=== PATIENT | male | born 1955 | race Caucasian/White ===

== ENCOUNTER 2017-03-02 15:18 | Outpatient (CLI) | payer OTHER | END 2017-03-02 15:19 | disposition home or self-care (01) | LOC: SC 15:18 | PROVIDERS: ATTEND Nurse Practitioner Family | DX: G47.33 Obstructive sleep apnea (adult) (pediatric) (principal) | CPT/HCPCS: 99212; 99214 ==

== ENCOUNTER 2018-11-16 | Outpatient (CLI) | payer MEDICARE, OTHER | END 2018-11-16 13:35 | disposition home or self-care (01) | DX: G47.33 Obstructive sleep apnea (adult) (pediatric) (principal) | CPT/HCPCS: 99214; G0463; 99212 ==

== ENCOUNTER 2022-10-14 14:50 | Outpatient (CLI) | payer MEDICARE, OTHER ==
--- NOTE | 2022-10-14 16:04 | SLEEP CARE CONSULTATION ---
Information from patient questionnaire entered by Rachel Leung. I have reviewed and concur with the information entered by Rachel Leung. This document represents the service I personally performed and the decisions made by me, Onelia Armijo ARNP. History of Present Illness Service Date and Time: 10/14/2022 1450 Reason for Visit: New patient, sleep apnea on CPAP therapy, Re-establish care Chief Complaint: reports: Other (UPDATE BIPAP MACHINE) Date of Onset: VIA Usual bedtime: 930-10PM Time it takes to fall asleep: 30MIN Snores at night: No Observed to quit breathing while asleep: No Sleeps alone due to snoring: No Number of times waking at night: 1 Reasons for waking at night: reports: Bathroom Toss, Turn, or Twitch while sleeping: No Recalls having dreams: Yes Usually gets out of bed at: WEEKDAYS 630-7AM WEEKENDS 9-10AM Feels refreshed in the morning: Yes Morning headache: No Sleepy or fatigued during the day: No Ever fallen asleep while driving: No Takes day naps: No Dreams during day naps: No Prior sleep studies: Yes Year and Where: 2009 [facility] Type of Sleep Study: Polysomnography Additional HPI information: THELMA GOULD was previously diagnosed to have extremely severe, AHI 94, obstructive sleep apnea-hypopnea syndrome as seen in sleep study done on 08/18/2009 here at [facility] and comes in today to re-establish care for BIPAP therapy. - Parasomnia Symptoms Ever been unable to move upon waking from sleep: No Walks in sleep: No Talks in sleep: No Ever acted out dreams in sleep: No Ever felt weak in the knees when startled or emotional: No Bothered by creepy, crawly, restless sensations in legs: No Problems with memory or concentration: No CPAP Compliance Data - Data Reviewed with Patient Average duration of nightly device use: 8 hours 50 minutes Compliance rate %: 98.3 (180/180 days used) Current pressure setting (cmH2O): 15/10 Average residual AHI: 1.5 (RERA 2.2) Central apnea: 0.1 Obstructive apnea: 0.7 Hypopnea: 0.7 Average large leak: 3 mins 33 secs Compliance data discussion: He has an old BIPAP Pro by [employer]. He is using a Resmed AirFit F20. He is getting his supplies from [employer]. Subjective Patient concerns: denies: aerophagia, mask discomfort, air blowing in eyes, mask leak noise, condensation in mask/hose, nasal congestion, dry mouth, nose, throat, epistaxis Initial [place] Sleepiness Scale score: 10 Current [place] Sleepiness Scale score: 3 (10/14/22) Past Medical History Past Medical History: reports: Hypertension, Gout, Arrythmia (Atrial fibrillation), GERD Social History The patient's occupation is a TEACHER. Patient is and lives in [place]. Have you smoked in the past 12 months: No Alcohol use: Yes Alcohol amount and frequency: VERY LITTLE LESS THAN ONCE A MONTH Caffeine use: Yes Caffeine amount and frequency: 2-3 CANS DAILY Family History Family history of sleep disordered breathing: No Allergies and Home Medications Known drug allergies: Yes (flu vaccine) Drug allergies reviewed: Yes Home medication list reviewed: Yes (see updated list in EMR) Review of Systems Weight gain over past 5 years: 100 (lost after Gastric sleeve but has gained it back since Covid happened) Cardiovascular: reports: high blood pressure, irregular heart rate or pulse, leg or foot swelling Gastrointestinal: denies: heartburn Neurological: denies: headaches Psychiatric: denies: anxiety, depression Musculoskeletal: reports: joint pain, joint swelling Physical Exam Vital signs obtained and entered by: RACHEL Rosales MA Blood Pressure: 136/90 (LEFT ARM) Cuff size: long Heart Rate: 94 O2 Saturation: 97 Height: 6 ft Weight: 447 lb 12.8 oz Body Mass Index: 60.7 BMI Classification: Morbidly Obese Neck circumference: 21.5 Heart: regular rate and rhythm Lungs: clear bilaterally Impression and Plan 1. Obstructive Sleep Apnea-Hypopnea Syndrome, extremely severe, with good treatment compliance and good apnea control. On BIPAP therapy, the patient has better sleep quality and is more rested overall. Patient has significant improvement of their sleep apnea and is satisfied with current CPAP therapy. He has a [employer] BiPAP Pro that he has had for over 5-6 years. Thus, the CPAP will be updated. A DWO prescription will be made. Compliance guidelines for new device and follow up discussed. Patient's apnea severity and rationale for treatment to reduce apnea, improve sleep quality and reduce cardiovascular and cerebrovascular events was reviewed. I also reviewed the benefit of consistent device use of BIPAP for hypertension. 2. Obesity, unspecified. Currently patients BMI is 60.7. Obesity increases the risk of apnea, BIPAP pressure requirements and overall health risks especially cardiovascular and diabetes. Thus patient is advised to lose weight. * Continue BIPAP pressure at 15/10 cmH2O * Update machine * Update supplies * Notify me if snoring with mask or feeling that the pressure is too much or too little * Attempt to lose weight * Call this office if any problems using BIPAP * Return for follow up one month after obtaining new device, or sooner if concerns arise Counseling Topics: Spare mask, Weight loss health impact Visit Type: In Office Time Spent with Patient (minutes): 30 Provider Statement: I spent 100% of the Face to Face Visit with the patient with greater than 50% spent counseling the patient and coordination of care.
[2022-10-14 16:05] VITALS: BP 136/90
== END 2022-10-14 14:51 | disposition home or self-care (01) ==
LOC: SC 14:50
PROVIDERS: ATTEND Nurse Practitioner Family
DX: G47.33 Obstructive sleep apnea (adult) (pediatric) (principal); E66.01 Morbid (severe) obesity due to excess calories; Z68.44 Body mass index [BMI] 60.0-69.9, adult
CPT/HCPCS: 99203; G0463; 99212

== ENCOUNTER 2023-01-25 16:23 | Outpatient (CLI) | payer MEDICARE, OTHER ==
--- NOTE | 2023-01-25 16:16 | SLEEP CARE CONSULTATION ---
Information from patient questionnaire entered by Rachel Leung. I have reviewed and concur with the information entered by Rachel Leung. This document represents the service I personally performed and the decisions made by , Onelia Armijo ARNP. History of Present Illness Service Date and Time: 01/25/2023 1600 Previous diagnosis: Extremely Severe, Obstructive Sleep Apnea-Hypopnea Syndrome AHI: 94 (in 2009) Reason for follow up: first compliance after device update Equipment type: BiPAP ([employer] AirCurve 10 VAuto; s/u 10/2022) Equipment obtained from: [employer] (getting supplies) Mask style: Full face Mask brand: Resmed (AirFit F20) Backup mask available: Yes (old mask) Last cushion change: 1+ weeks Prior sleep studies: Yes Year and Where: 2009 [facility] Type of Sleep Study: Polysomnography HPI additional information: THELMA GOULD was diagnosed to have extremely severe, AHI 94, obstructive sleep apnea-hypopnea syndrome and returns via video telehealth visit today for BIPAP therapy first compliance after updating device follow-up. Sleep Study - Results Type of Sleep Study: Polysomnography Prior sleep studies: Yes Year and Where: 2009 [facility] CPAP Compliance Data - Data Reviewed with Patient Average duration of nightly device use: 8 HRS 59 MINS Compliance rate %: 100 (12/21/22-01/19/23; 30/30 days used) Current pressure setting (cmH2O): 15/10 Average residual AHI: 0.9 Central apnea: 0.1 Obstructive apnea: 0.2 Average large leak: 1.8 L/min Subjective Patient concerns: denies: aerophagia, mask discomfort, air blowing in eyes, mask leak noise, condensation in mask/hose, nasal congestion, dry mouth, nose, throat, epistaxis Observed to snore while using device: No Current pressure setting perceived as: comfortable On therapy, patient: reports: sleeping better, awakening more refreshed, being more awake and alert during the day, more rested overall. denies: drowsiness while driving Initial [place] Sleepiness Scale score: 10 Current [place] Sleepiness Scale score: 4 Allergies and Home Medications Known drug allergies: Yes Drug allergies reviewed: Yes Home medication list reviewed: Yes (no changes) Allergy and home medication list: Allergies influenza virus vaccine qs [id number] (36 mos, up) [From [employer]] Allergy (Verified 10/09/23 10:25) Review of Systems Review of systems same as previous: Yes (no changes) Physical Exam Vital signs obtained and entered by: RACHEL Rosales MA Blood Pressure: 121/73 (per pt) Height: 6 ft Weight: 410 lb (per pt) Body Mass Index: 55.5 BMI Classification: Morbidly Obese Impression and Plan 1. Obstructive Sleep Apnea-Hypopnea Syndrome, extremely severe, with good treatment compliance and good apnea control. On BIPAP therapy, the patient has better sleep quality and is more rested overall. Patient returns for compliance visit with his new BiPAP. He states things are going well and he likes the new device. Patient has significant improvement of their sleep apnea and is satisfied with current CPAP therapy. Patient denies problems with oral dryness, nasal congestion, epistaxis, skin irritation or aerophagia. Patient's apnea severity and rationale for treatment to reduce apnea, improve sleep quality and reduce cardiovascular and cerebrovascular events was reviewed. I also reviewed the benefit of consistent device use of BIPAP for hypertension, arrhythmia (Afib) and gastric reflux. 2. Morbid Obesity, unspecified. Currently patients BMI is 55.5. Obesity increases the risk of apnea, CPAP pressure requirements and overall health risks especially cardiovascular and diabetes. Thus patient is advised to lose weight. * Continue BIPAP pressure at 15/10 cmH2O * Notify me if snoring with mask or feeling that the pressure is too much or too little * Attempt to lose weight * Call this office if any problems using BIPAP * Return for follow up in 1 year, or sooner if concerns arise Counseling Topics: Spare mask, Weight loss health impact Follow up with Sleep Care in: 1 year Visit Type: Telehealth Video Video Type: [employer] Patient Location: Home Location of Provider: Office Patient agrees and consents to this telehealth visit type: Yes Patient agrees to have their insurance billed: Yes Time Spent with Patient (minutes): 12 Provider Statement: I spent 100% of the Telehealth Video Call with the patient with greater than 50% spent counseling the patient and coordination of care.
[2023-01-25 16:33] VITALS: BP 121/73
== END 2023-01-25 16:24 | disposition home or self-care (01) ==
LOC: SC 16:23
PROVIDERS: ATTEND Nurse Practitioner Family
DX: G47.33 Obstructive sleep apnea (adult) (pediatric) (principal); E66.01 Morbid (severe) obesity due to excess calories; Z68.43 Body mass index [BMI] 50.0-59.9, adult